=== PATIENT | male | born 1960 | race Caucasian/White ===

== ENCOUNTER 2016-09-23 08:23 | Inpatient (IN) | payer OTHER ==
[~2016-09-23] VITALS: Ht 170.2 cm; Wt 68.5 kg
[2016-09-23 09:18] LABS: EOSINOPHIL (%) 0.1 % (0-5); HEMATOCRIT 44.1 % (38.0-50.0); IMMATURE GRANULOCYTE COUNT 0.2 K/uL; INSTRUMENT ABS NEUTROPHIL CT 14.8 K/uL; LYMPHOCYTE COUNT 1.7 K/uL (1.0-2.8); MCH 30.2 PG (29.0-34.0); MCHC 33.1 G/DL (30.0-36.0); MCV 91.3 FL (86-99); MEAN PLAT.VOLUME 9.8 uM^3 (9.0-12.4); MONOCYTE COUNT 1.7 K/uL (0-0.8); NEUTROPHIL (%) 80.7 % (45-76); NEUTROPHIL COUNT 14.8 K/uL (1.8-6.4); PLATELET COUNT 317 K/uL (156-360); RBC DIS.WIDTH-CV 13.2 % (11.8-14.6); RBC DIS.WIDTH-SD 44.8 % (39-53); RED BLOOD COUNT 4.83 M/uL (4.00-5.50); WHITE BLOOD COUNT 18.3 K/uL (4.1-10.2)
[2016-09-23 09:26] LABS: CHLORIDE 103 mEq/L (99-109); POTASSIUM 3.7 mEq/L (3.7-5.4); SODIUM 141 mEq/L (136-147)
[2016-09-23 09:28] LABS: GLUCOSE 133 mg/dL (70-99)
[2016-09-23 09:29] LABS: ANION GAP 14 MEQ/L (2-14)
[2016-09-23 09:30] LABS: TOTAL BILIRUBIN 1.4 mg/dL (0.0-1.0)
[2016-09-23 09:31] LABS: ALKALINE PHOSPHATASE 102 IU/L (3-129)
[2016-09-23 09:32] LABS: GFR ESTIMATE (CALCULATED) > 59 mL/min/
[2016-09-23 09:33] LABS: UREA NITROGEN (BUN) 26 mg/dL (9-23)
[2016-09-23 15:18] VITALS: BP 164/83
[2016-09-23 15:20] VITALS: BP 164/83
[2016-09-23 18:41] VITALS: BP 134/87
[2016-09-23 23:40] VITALS: BP 158/89
[2016-09-24 04:12] VITALS: BP 159/84
[2016-09-24 06:11] LABS: HEMATOCRIT 37.3 % (38.0-50.0); MCHC 32.2 G/DL (30.0-36.0); MCV 93.3 FL (86-99); MEAN PLAT.VOLUME 9.7 uM^3 (9.0-12.4); PLATELET COUNT 326 K/uL (156-360); RBC DIS.WIDTH-CV 13.4 % (11.8-14.6); RBC DIS.WIDTH-SD 45.9 % (39-53); WHITE BLOOD COUNT 13.6 K/uL (4.1-10.2)
[2016-09-24 07:06] LABS: CHLORIDE 106 mEq/L (99-109); POTASSIUM 4.4 mEq/L (3.7-5.4); SODIUM 142 mEq/L (136-147)
[2016-09-24 07:08] LABS: GLUCOSE 117 mg/dL (70-99)
[2016-09-24 07:09] LABS: ANION GAP 9 MEQ/L (2-14)
[2016-09-24 07:12] LABS: GFR ESTIMATE (CALCULATED) > 59 mL/min/
[2016-09-24 07:13] LABS: UREA NITROGEN (BUN) 30 mg/dL (9-23)
[2016-09-24 07:28] VITALS: BP 168/96
[2016-09-24 11:19] VITALS: BP 163/77
[2016-09-24 15:01] VITALS: BP 156/87
[2016-09-24] MEDS ORDERED: LOW DOSE ASPIRI81 M1 PO (15:20)
[2016-09-24 18:57] VITALS: BP 174/81
[2016-09-24 23:15] VITALS: BP 164/96
[2016-09-25 04:30] VITALS: BP 154/77
[2016-09-25 05:48] LABS: EOSINOPHIL (%) 0 % (0-5); HEMATOCRIT 36.2 % (38.0-50.0); IMMATURE GRANULOCYTE (%) 0.6 % (0.0-0.7); IMMATURE GRANULOCYTE COUNT 0.1 K/uL; INSTRUMENT ABS NEUTROPHIL CT 8.1 K/uL; LYMPHOCYTE COUNT 1.2 K/uL (1.0-2.8); MCH 29.9 PG (29.0-34.0); MCHC 32.3 G/DL (30.0-36.0); MCV 92.6 FL (86-99); MEAN PLAT.VOLUME 9.6 uM^3 (9.0-12.4); MONOCYTE (%) 2.8 % (3-12); MONOCYTE COUNT 0.3 K/uL (0-0.8); NEUTROPHIL (%) 83.9 % (45-76); NEUTROPHIL COUNT 8.1 K/uL (1.8-6.4); PLATELET COUNT 330 K/uL (156-360); RBC DIS.WIDTH-CV 13.2 % (11.8-14.6); RBC DIS.WIDTH-SD 45.2 % (39-53); RED BLOOD COUNT 3.91 M/uL (4.00-5.50); WHITE BLOOD COUNT 9.7 K/uL (4.1-10.2)
[2016-09-25 06:14] LABS: ANION GAP 9 MEQ/L (2-14); CHLORIDE 103 MEQ/L (99-109); GFR ESTIMATE (CALCULATED) > 59 mL/min/; GLUCOSE 155 mg/dL (70-99); POTASSIUM 4.1 MEQ/L (3.7-5.4); SAMPLE HEMOLYSIS CHECK 0; SAMPLE ICTERIC CHECK 0; SAMPLE LIPEMIA CHECK 0; SODIUM 140 MEQ/L (136-147); UREA NITROGEN (BUN) 25 mg/dL (9-23)
[2016-09-25 08:15] VITALS: BP 151/79
[2016-09-25 12:04] VITALS: BP 153/80
[2016-09-25 16:49] VITALS: BP 159/75
[2016-09-25 19:08] VITALS: BP 141/68
[2016-09-25 23:25] VITALS: BP 151/95
[2016-09-26 04:17] VITALS: BP 143/80
[2016-09-26 05:49] LABS: EOSINOPHIL (%) 0 % (0-5); IMMATURE GRANULOCYTE (%) 0.8 % (0.0-0.7); IMMATURE GRANULOCYTE COUNT 0.1 K/uL; INSTRUMENT ABS NEUTROPHIL CT 8.2 K/uL; LYMPHOCYTE COUNT 1.8 K/uL (1.0-2.8); MCH 30.5 PG (29.0-34.0); MCHC 32.7 G/DL (30.0-36.0); MCV 93.2 FL (86-99); MEAN PLAT.VOLUME 9.7 uM^3 (9.0-12.4); MONOCYTE COUNT 0.5 K/uL (0-0.8); NEUTROPHIL (%) 77.1 % (45-76); NEUTROPHIL COUNT 8.2 K/uL (1.8-6.4); PLATELET COUNT 369 K/uL (156-360); RBC DIS.WIDTH-CV 13.2 % (11.8-14.6); RBC DIS.WIDTH-SD 45.2 % (39-53); RED BLOOD COUNT 3.97 M/uL (4.00-5.50); WHITE BLOOD COUNT 10.6 K/uL (4.1-10.2)
[2016-09-26 06:21] LABS: ANION GAP 7 MEQ/L (2-14); CHLORIDE 103 MEQ/L (99-109); GFR ESTIMATE (CALCULATED) > 59 mL/min/; GLUCOSE 126 mg/dL (70-99); POTASSIUM 4.5 MEQ/L (3.7-5.4); SAMPLE HEMOLYSIS CHECK 0; SAMPLE ICTERIC CHECK 0; SAMPLE LIPEMIA CHECK 0; SODIUM 140 MEQ/L (136-147); UREA NITROGEN (BUN) 23 mg/dL (9-23)
[2016-09-26 07:43] VITALS: BP 166/92
[2016-09-26 12:15] VITALS: BP 108/56; BP 120/96
[2016-09-26 15:45] VITALS: BP 154/76
[2016-09-26] MEDS ORDERED: AUGMENTIN875 MG PO (15:47)
[2016-09-26] MEDS ORDERED: NICOTINE PATCH1 EAC2 TD (15:47)
[2016-09-26] MEDS ORDERED: HYGROTON25 MG PO (15:48)
[2016-09-26] MEDS ORDERED: PREDNISONE10 MG PO (15:50)
== END 2016-09-26 16:45 | disposition home or self-care (01) | DRG 153 ==
LOC: EME 08:23 → EDOF 12:42 → 4EAST 12:42
PROVIDERS: Internal Medicine; Physician Assistant
DX: J05.10 Acute epiglottitis without obstruction (principal); Z91.19 Patient's noncompliance with other medical treatment and regimen; J39.0 Retropharyngeal and parapharyngeal abscess; R13.10 Dysphagia, unspecified; I10 Essential (primary) hypertension; F17.210 Nicotine dependence, cigarettes, uncomplicated; I88.9 Nonspecific lymphadenitis, unspecified; K11.7 Disturbances of salivary secretion; Z79.82 Long term (current) use of aspirin; Z79.52 Long term (current) use of systemic steroids
CPT/HCPCS: 70360; 70491; 80048; 80053; 80202; 83605; 85025; 85027; 85651; 87040; 99202; 99281; 99285; J0295; J0692; J1100; J1650; J1885; J2270; J2930; J3370; J7050; J7120; S0028